=== PATIENT | male | born 1995 | race American Indian/Alaskan Native ===

== ENCOUNTER 2017-03-28 10:20 | Emergency (ER) | payer SELFPAY ==
[2017-03-28 10:44] VITALS: BP 121/79
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
== END 2017-03-28 13:22 | disposition home or self-care (01) ==
LOC: ED 10:20
DX: S39.012A Strain of muscle, fascia and tendon of lower back, initial encounter (principal); S16.1XXA Strain of muscle, fascia and tendon at neck level, initial encounter; J45.909 Unspecified asthma, uncomplicated; Z88.1 Allergy status to other antibiotic agents; V89.2XXA Person injured in unspecified motor-vehicle accident, traffic, initial encounter; Y93.89 Activity, other specified; Y99.8 Other external cause status; Y92.89 Other specified places as the place of occurrence of the external cause
CPT/HCPCS: 72040; 72100; 99283

== ENCOUNTER 2020-12-03 20:39 | Emergency (ER) | payer SELFPAY ==
[2020-12-03 23:36] VITALS: BP 133/82
--- NOTE | 2020-12-04 00:03 | Emergency Department Report ---
ED General Adult HPI - General Chief complaint: Allergic Reaction Stated complaint: TONGUE SWOLLEN/CAN'T SWALLOW Time Seen by Provider: 12/03/20 23:57 Source: patient Mode of arrival: Ambulatory Limitations: No Limitations - History of Present Illness Initial comments: 24-year-old male complaining of his tongue being painful and feeling irritated he denies any known use of any medication or food that could have caused this problem. He has no facial swelling no lip swelling. He denies any use of any new medicine or any new foods. He denies sore throat he just states that his throat feels dry he denies cough no nasal congestion no loss of taste and smell. Patient is in no acute distress. He tried Benadryl today for the first time without improvement. -: week(s) (1) - Related Data Previous Rx's Medication Instructions Recorded Last Taken Type Cyclobenzaprine [Flexeril] 10 mg PO BID PRN #20 tablet 03/28/17 Unknown Rx Naproxen [Naprosyn TAB] 500 mg PO BID #20 tablet 03/28/17 Unknown Rx traMADoL [Ultram 50 MG tab] 50 mg PO Q4HR PRN #30 tablet 03/28/17 Unknown Rx Nystas/Diphen/Xyl Visc/Mylanta 30 ml MM Q4H PRN 2 Days #240 ml 12/04/20 Unknown Rx [Magic Mouthwash] Allergies Allergy/AdvReac Type Severity Reaction Status Date / Time amoxicillin [Amoxicillin] Allergy Rash Verified 03/28/17 10:37 ED Review of Systems ROS: Stated complaint: TONGUE SWOLLEN/CAN'T SWALLOW Other details as noted in HPI ED Past Medical Hx - Past Medical History Previous Medical History?: Yes Hx Asthma: Yes - Surgical History Past Surgical History?: No - Social History Smoking Status: Never Smoker Substance Use Type: None - Medications Home Medications: Home Medications Medication Instructions Recorded Confirmed Last Taken Type Cyclobenzaprine [Flexeril] 10 mg PO BID PRN #20 tablet 03/28/17 Unknown Rx Naproxen [Naprosyn TAB] 500 mg PO BID #20 tablet 03/28/17 Unknown Rx traMADoL [Ultram 50 MG tab] 50 mg PO Q4HR PRN #30 tablet 03/28/17 Unknown Rx Nystas/Diphen/Xyl Visc/Mylanta 30 ml MM Q4H PRN 2 Days #240 ml 12/04/20 Unknown Rx [Magic Mouthwash] ED Physical Exam - General Limitations: No Limitations General appearance: alert, in no apparent distress - Head Head exam: Present: atraumatic - Eye Eye exam: Present: normal appearance. Absent: conjunctival injection - ENT ENT exam: Present: normal exam, mucous membranes moist, other (His tongue appears normal and intact no lesions no swelling. There is tenderness with palpation tonsils are within normal limits no redness no swelling no exudate uvula is midline) - Neck Neck exam: Present: normal inspection, full ROM. Absent: lymphadenopathy - Respiratory Respiratory exam: Present: normal lung sounds bilaterally. Absent: respiratory distress - Cardiovascular Cardiovascular Exam: Present: regular rate, normal heart sounds - Extremities Exam Extremities exam: Present: normal inspection - Back Exam Back exam: Present: normal inspection - Neurological Exam Neurological exam: Present: oriented X3 - Psychiatric Psychiatric exam: Present: normal affect - Skin Skin exam: Present: warm, dry, intact, normal color. Absent: rash ED Course Vital Signs 12/03/20 23:34 Temperature 99.0 F Pulse Rate 86 Respiratory 20 Rate Blood Pressure 133/82 O2 Sat by Pulse 99 Oximetry ED Medical Decision Making - Medical Decision Making This is a 24-year-old male who presents to the emergency room with 1 week complaint of his tongue feeling irritated and swollen and dry mouth and dry throat. Patient upon examination is in no acute distress there is. There is no drooling his anterior throat is normal there is no swelling no redness no exudate patient is in no distress tolerating oral liquids well. The plan is to start Magic mouthwash every 4 hours x2days increase oral hydration decrease spicy foods and carbonated liquids and follow-up with PCP Critical care attestation.: If time is entered above; I have spent that time in minutes in the direct care of this critically ill patient, excluding procedure time. ED Disposition Clinical Impression: Stomatitis Disposition: DC- TO HOME OR SELFCARE Is pt being admited?: No Does the pt Need Aspirin: No Condition: Stable Instructions: Oral Mucositis, Stomatitis, [id number] Additional Instructions: Use Magic mouthwash as prescribed every 4 hours 30 mL s swish in your mouth for 30 seconds then spit. Eat a bland diet no spicy or carbonated foods. Drink lots of water. Follow-up with your primary care doctor in 3 to 5 days if no improvement or return to emergency room for any worsening symptoms such as difficulty swallowing or breathing. Prescriptions: Nystas/Diphen/Xyl Visc/Mylanta [Magic Mouthwash] 30 ml MM Q4H PRN 2 Days #240 ml PRN Reason: Tongue irritation Referrals: PRIMARY CARE, [Primary Care Provider] - 3-5 Days BAR LUJAN MD [Staff Physician] - 3-5 Days Time of Disposition: 00:04
== END 2020-12-04 01:17 | disposition home or self-care (01) ==
LOC: ED 20:39
DX: K12.1 Other forms of stomatitis (principal); J45.909 Unspecified asthma, uncomplicated; Z88.0 Allergy status to penicillin; Z79.899 Other long term (current) drug therapy
CPT/HCPCS: 99282